=== PATIENT | male | born 1965 | race Caucasian/White ===

== ENCOUNTER 2017-09-07 20:05 | Emergency (ER) | payer OTHER ==
[2017-09-07] MEDS ORDERED: BOOSTRIX IM ONE (20:39)
[2017-09-07] MEDS ORDERED: RABAVERT RABIES VACCINE(PCEC) IM ONE (20:43)
[2017-09-07] MEDS ORDERED: hyperRAB S/D IM ONE (20:43)
--- NOTE | 2017-09-07 22:12 | Emergency Department Report ---
ED Animal Bite HPI - General Chief Complaint: Animal Bite Stated Complaint: BITTEN BY A MOY Time Seen by Provider: 09/07/17 20:38 Source: patient Mode of arrival: Ambulatory Limitations: Language Barrier - History of Present Illness Initial Comments: This is a 52 y.o. male presenting with a moy bite to left valerio. Patient states he was working on a car in a garage at work and a moy bit him on the left valerio. He cleaned with water and peroxide. He saw the moy afterwards, photographed, and killed him. The patient developed a puncture wound to left valerio below the knee. Complaint: animal bite, animal-related injury (moy) -: This evening Time: 17:00 Location: other (LLE) Left: Leg Animal: other (moy) Animal Control Notified: Yes Description: wild animal (moy) Mechanism: bite Severity scale (0 -10): 0 Context: unprovoked Associated Symptoms: erythema, bleeding. denies: discharge from wound, fever, chills, rash, loss of consciousness, cough, headache, diaphoresis, shortness of breath Treatments Prior to Arrival: irrigation (water and peroxide) - Related Data Patient Tetanus UTD: No Previous Rx's Medication Instructions Recorded Last Taken Type HYDROcodone/APAP 5-325 [[place] 1 each PO Q4HR PRN #15 tablet 09/10/15 Unknown Rx 5/325] Ketorolac [Toradol] 10 mg PO Q6H PRN #20 tablet 09/10/15 Unknown Rx Amoxicillin/Potassium Clav 1 each PO BID 5 Days #10 tablet 09/07/17 Unknown Rx [Augmentin 875-125 Tablet] Allergies Allergy/AdvReac Type Severity Reaction Status Date / Time No Known Allergies Allergy Verified 09/07/17 20:20 ED Review of Systems ROS: Stated complaint: BITTEN BY A MOY Other details as noted in HPI Constitutional: no symptoms reported, see HPI. denies: chills, diaphoresis, fever, malaise, weakness Respiratory: no symptoms reported, see HPI. denies: cough, orthopnea, shortness of breath, SOB with exertion, SOB at rest, stridor, wheezing Cardiovascular: as per HPI. denies: chest pain, palpitations, dyspnea on exertion, orthopnea, edema, syncope, paroxysmal nocturnal dyspnea Musculoskeletal: as per HPI. denies: back pain, joint swelling, arthralgia, myalgia Skin: as per HPI, other (puncture wound to left valerio) Neurological: as per HPI. denies: headache, weakness, numbness, paresthesias, confusion, abnormal gait, vertigo Psychiatric: as per HPI. denies: anxiety, depression, auditory hallucinations, visual hallucinations, homicidal thoughts, suicidal thoughts ED Past Medical Hx - Past Medical History Previous Medical History?: No - Surgical History Past Surgical History?: No - Social History Smoking Status: Current Every Day Smoker Substance Use Type: None - Medications Home Medications: Home Medications Medication Instructions Recorded Confirmed Last Taken Type HYDROcodone/APAP 5-325 [[place] 1 each PO Q4HR PRN #15 tablet 09/10/15 Unknown Rx 5/325] Ketorolac [Toradol] 10 mg PO Q6H PRN #20 tablet 09/10/15 Unknown Rx Amoxicillin/Potassium Clav 1 each PO BID 5 Days #10 tablet 09/07/17 Unknown Rx [Augmentin 875-125 Tablet] ED Physical Exam - General Limitations: Language Barrier General appearance: alert, in no apparent distress - Respiratory Respiratory exam: Present: normal lung sounds bilaterally. Absent: respiratory distress, wheezes, rales, rhonchi, stridor, chest wall tenderness, accessory muscle use, decreased breath sounds, prolonged expiratory - Cardiovascular Cardiovascular Exam: Present: regular rate, normal rhythm, normal heart sounds. Absent: bradycardia, tachycardia, irregular rhythm, systolic murmur, diastolic murmur, rubs, gallop, clicks, JVD, S3, S4 - GI/Abdominal GI/Abdominal exam: Present: soft, normal bowel sounds. Absent: distended, tenderness, guarding, rebound, rigid, diminished bowel sounds, hyperactive bowel sounds, hypoactive bowel sounds, organomegaly, mass, bruit, pulsatile mass , hernia - Extremities Exam Extremities exam: Present: normal inspection, full ROM, tenderness, normal capillary refill. Absent: pedal edema, joint swelling, calf tenderness - Neurological Exam Neurological exam: Present: alert, oriented X3, CN II-XII intact, normal gait, reflexes normal. Absent: altered, abnormal gait, motor sensory deficit - Psychiatric Psychiatric exam: Present: normal affect, normal mood. Absent: depressed, agitated, anxious, flat affect, manic, homicidal ideation, suicidal ideation - Skin Skin exam: Present: warm, dry, normal color, erythema, other (2 cm puncture wound below knee on left valerio, subcutaneous tissue, no exposed tendons). Absent : rash, cyanosis, diaphoretic, urticaria, vesicles, petechiae, pallor, abrasion , ecchymosis ED Course Vital Signs 09/07/17 20:20 Temperature 98.2 F Pulse Rate 90 Respiratory 16 Rate Blood Pressure 122/85 O2 Sat by Pulse 98 Oximetry Critical care attestation.: If time is entered above; I have spent that time in minutes in the direct care of this critically ill patient, excluding procedure time. ED Disposition Clinical Impression: Dog bite of left lower leg Qualifiers: Encounter type: initial encounter Qualified Code(s): S81.852A - Open bite, left lower leg, initial encounter Disposition: - TO HOME OR SELFCARE Is pt being admited?: No Does the pt Need Aspirin: No Condition: Stable Additional Instructions: Return to ER for Rabies immune globulin injections in 7 days, 14 days, 21 days of injury to complete 4 step treatment prevention. Prescriptions: Amoxicillin/Potassium Clav [Augmentin 875-125 Tablet] 1 each PO BID 5 Days #10 tablet Referrals: KAY JASMINE MD [Primary Care Provider] - 3-5 Days Forms: Work/School Release Form(ED) Time of Disposition: 22:24 Print Language: FAROESE
[2017-09-07 23:34] VITALS: BP 113/82
== END 2017-09-08 00:10 | disposition home or self-care (01) ==
LOC: ED 20:05
DX: S81.852A Open bite, left lower leg, initial encounter (principal); F17.200 Nicotine dependence, unspecified, uncomplicated; W64.XXXA Exposure to other animate mechanical forces, initial encounter; Y93.89 Activity, other specified; Y92.89 Other specified places as the place of occurrence of the external cause; Y99.8 Other external cause status
CPT/HCPCS: 90375; 90471; 90472; 90675; 90715; 96372